=== PATIENT | male | born 1930 | race Caucasian/White ===

== ENCOUNTER 2016-06-21 12:20 | Emergency (ER) | payer MEDICARE, OTHER ==
[2016-06-21 12:36] VITALS: BP 130/67
[2016-06-21] MEDS ORDERED: ORPHENADRINE CITRATE 60 MG/2ML IM ONE (12:44)
[2016-06-21] MEDS ORDERED: HALOPERIDOL LACTATE 5 MG/ML VIAL IM ONE (12:44)
[2016-06-21] MEDS ORDERED: KETOROLAC TROMETHAMINE 60 MG/2 ML VIAL IM ONE (12:44)
[2016-06-21] MEDS ORDERED: oxyCODONE/ACETAMINOPHEN 5/325 TABLET PO ONE ×2 (14:45)
--- NOTE | 2016-06-21 15:51 | Diagnostic Imaging Report ---
[facility] [address] [facility] [address] [address] Report Submission Date: Jun 21, 2016 1:37:14 PM RESEARCH AFFILIATE Patient Study Name: AURELIO ZAMORA Date: Jun 21, 2016 1:12:32 PM RESEARCH AFFILIATE Modality Type: CT\SR Gender: M Description: CT L-SPINE W/O CONTRAS : 34 Institution: [facility] Physician: LELAND SALES CT of the lumbar spine CLINICAL HISTORY: Low back pain with sciatica on the left. TECHNIQUE: CT of the lumbar spine is performed in contiguous axial slices with sagittal and coronal reconstructions. FINDINGS: The alignment of the vertebrae is anatomic. Anterior and lateral osteophytes are present throughout the lumbar vertebrae. There is no evident fracture On the axial images at L2-3 there are degenerative facet changes with hypertrophic osteophytes. Epidural fat still surrounds the exiting roots. The diameter of the canal is within normal limits At L3-4 there are mild degenerative facet changes. There is 2-3 mm diffuse discogenic bulge. Epidural fat still surrounds the exiting roots. At L4-5 there are degenerative facet changes with osteophyte formation. There is mild hypertrophy of the ligaments. There is narrowing of both neural foramina at L4-5, although epidural fat still surrounds the exiting roots At L5-S1 there advanced degenerative facet changes with diffuse discogenic bulge of 2-3 mm. This results in narrowing of the lateral recesses and neural foramina bilaterally. IMPRESSION: Multilevel spondylosis that is worst at L5-S1. No fracture. Vascular calcification. Electronically signed on Jun 21, 2016 1:37:14 PM RESEARCH AFFILIATE by: Arias MADRID
--- NOTE | 2016-06-22 07:33 | ED Physician Documentation ---
Low Back Pain - HISTORIAN Historian: patient - HPI Stated Complaint: Left Hip Pain Chief Complaint: Low Back Pain/ Injury History: back pain Onset: hours (2) Duration: continues in ED, gone now Recent Injury: No Other Injuries: back Severity: moderate Quality: sharp Worsened By:: movement to LT flexion Relieved By: nothing Further Comments: no - ROS CONST: no problems CVS/RESP: none EYES/ENT: none MS/SKIN/LYMPH: none Neuro/Psych: none - PAST HX Past History: arthritis Surgeries/Procedures: none Immunizations: referred to PCP Allergies/Adverse Reactions: Allergies Allergy/AdvReac Type Severity Reaction Status Date / Time amiodarone Allergy Verified 06/21/16 12:37 Home Medications: Ambulatory Orders Medication Instructions Recorded Hydrochlorothiazide [Hydrodiuril] 12.5 mg PO DAILY 12/03/13 Lecithin 1,200 mg PO BID 12/03/13 Tiotropium [place] [Spiriva] 18 mcg INH DAILY 12/03/13 Diltiazem HCl [Cardizem CD] 1 tab PO D 03/29/14 Glucosamine/MSM/Chondroit Sulf 1 tab PO BID 03/29/14 [Ripvznbnton-Wnszqqebhll-JPS Tb] Metoprolol Tartrate [Lopressor] 50 mg PO BID 03/29/14 Warfarin Sodium [Coumadin] 1 tab PO [id number] 03/29/14 Warfarin Sodium [Coumadin] 1 tab PO [id number] 03/29/14 - SOCIAL HX Smoking History: non-smoker Alcohol Use: none Drug Use: none - FAMILY HX Family History: no significant history - VITAL SIGNS Vital Signs: Vital Signs Temp Pulse Resp BP Pulse Ox 98 F 78 18 130/67 98 06/21/16 12:20 06/21/16 15:15 06/21/16 15:15 06/21/16 15:15 06/21/16 15:15 - REVIEWED ASSESSMENTS Nursing Assessment Reviewed: Yes Vitals Reviewed: Yes Progress - Results/Orders Results/Orders: see orders - Progress Progress: responded to percocet Critical Care Note - Critical Care Note Total Time (mins): 0 ED Results Lab/Radiology - Lab Results Lab Results: none ordered - Radiology Radiology Impressions: ct l-spine shows ddd - Orders Orders: ED Orders Category Date Time Status CT L-SPINE W/O CONTRAST Stat Exams 06/21/16 Completed Haloperidol Lactate [Haldol] Med 06/21/16 12:44 Discontinued 5 mg IM NOW ONE Ketorolac Tromethamine [Toradol] Med 06/21/16 12:44 Discontinued 60 mg IM NOW ONE Orphenadrine Citrate [Norflex] Med 06/21/16 12:44 Discontinued 60 mg IM NOW ONE oxyCODONE HCL/ACETAMINOPHEN [Percocet 5-325 mg Tablet] Med 06/21/16 14:45 Discontinued 2 each PO .STK-MED ONE oxyCODONE HCL/ACETAMINOPHEN [Percocet 5-325 mg Tablet] Med 06/21/16 14:45 Discontinued 2 each PO NOW ONE Low Back Pain/Injury - Physical Exam General Appearance: moderate distress EENT: eye inspection normal, ENT inspection normal, pharynx normal, no signs of dehydration, CASPER, no nystagmus, TM's nml Neck: non-tender, painless ROM, trachea midline Resp/CVS: chest non-tender, breath sounds nml, heart sounds nml, no resp. distress, lungs clear, reg. rate & rhythm Abdomen: non-tender, no organomegaly, no pulsatile mass Back: other (l5 tenderness left) Straight Leg Raising: Positive Left, Positive Right Neuro/Psych: oriented x3, motor nml, sensation nml, bilat. doriflexion nml, reflexes nml, mood/affect nml Skin: warm/dry, normal color Extremities: non-tender, normal range of motion, no evidence of injury, no edema Discharge Clincal Impression: Sciatica Qualifiers: Laterality: left Qualified Code(s): M54.32 - Sciatica, left side Degenerative disc disease Qualifiers: Spinal region: lumbar Qualified Code(s): M51.36 - Other intervertebral disc degeneration, lumbar region Referrals: Mitchell Carter MD [Primary Care Provider] - 2 Days Home Medications: Ambulatory Orders Hydrochlorothiazide [Hydrodiuril] 12.5 mg PO DAILY 12/03/13 Lecithin 1,200 mg PO BID 12/03/13 Tiotropium [place] [Spiriva] 18 mcg INH DAILY 12/03/13 Diltiazem HCl [Cardizem CD] 1 tab PO D 03/29/14 Glucosamine/MSM/Chondroit Sulf [Gkedlqroxjx-Tyoyauyezig-YFL Tb] 1 tab PO BID 09/06 Metoprolol Tartrate [Lopressor] 50 mg PO BID 03/29/14 Warfarin Sodium [Coumadin] 1 tab PO [id number] 03/29/14 Warfarin Sodium [Coumadin] 1 tab PO [id number] 03/29/14 Comments: discharged with script for percocet, parafon and meloxicam Condition: Stable Disposition: 01 HOME, SELF-CARE Decision to Admit: NO Decision Time: 15:10
== END 2016-06-21 15:15 | disposition home or self-care (01) ==
LOC: ED 12:20
DX: M54.32 Sciatica, left side (principal)
CPT/HCPCS: 72131; A9270; J1630; J1885; J2360; 96372; 99283

== ENCOUNTER 2016-06-24 17:09 | Outpatient (CLI) | payer MEDICARE, OTHER | END 2016-06-24 17:15 | disposition home or self-care (01) | LOC: LAB 17:09 | PROVIDERS: ATTEND Family Medicine | DX: Z51.81 Encounter for therapeutic drug level monitoring (principal); Z79.01 Long term (current) use of anticoagulants; I48.2 Chronic atrial fibrillation | CPT/HCPCS: 36415; 85610 ==

== ENCOUNTER 2016-11-14 13:44 | Outpatient (CLI) | payer MEDICARE, OTHER ==
[2016-11-14 14:08] LABS: BASOPHILS % 1.9 (0.0-1.5); EOSINOPHILS % 5.5 % (0.0-6.8); MEAN CORPUSCULAR HEMOGLOBIN 33.5 pg (28.0-34.0); MEAN CORPUSCULAR VOLUME 98.7 fl (80.0-100.0); MONOCYTES % 10.5 % (0.0-11.0); NEUTROPHILS # 2.2 # k/uL (1.4-7.7)
[2016-11-14 14:34] LABS: eGFR (African) > 60; eGFR (Non-African) > 60
--- NOTE | 2016-11-14 16:25 | Diagnostic Imaging Report ---
[facility] [address] [facility].[address] [address] Report Submission Date: Nov 14, 2016 2:56:50 PM CDT Patient Study Name: AURELIO ZAMORA Date: Nov 14, 2016 2:08:23 PM CDT Modality Type: CR Gender: M Description: CHEST : 34 Institution: [facility] Physician: CHRISTOPHER LOCK Examination: PA and lateral chest. History: Evaluate lung love. Findings: PA lateral chest demonstrate a normal cardiac and mediastinal silhouette. No focal infiltrate. No effusion. Prominent central hilar vasculature. Left sided dual lead cardiac pacemaker. No blunting of the costophrenic margins. Osseous structures are appropriate for age. Impression: No acute process. Electronically signed on Nov 14, 2016 2:56:50 PM CDT by: Anthony MADRID
== END 2016-11-14 13:45 ==
LOC: LAB 13:44
PROVIDERS: ATTEND Nurse Practitioner
DX: I10 Essential (primary) hypertension (principal); I34.0 Nonrheumatic mitral (valve) insufficiency; I42.0 Dilated cardiomyopathy; I48.2 Chronic atrial fibrillation; R06.02 Shortness of breath; R60.0 Localized edema
CPT/HCPCS: 36415; 71020; 80053; 80061; 80162; 83880; 84443; 85025

== ENCOUNTER 2017-12-25 08:56 | Emergency (ER) | payer MEDICARE, OTHER ==
[2017-12-25 09:27] LABS: BASOPHILS % 0.2 (0.0-1.5); EOSINOPHILS % 1.8 % (0.0-6.8); MONOCYTES % 4.9 % (0.0-11.0); NEUTROPHILS # 6.2 # k/uL (1.4-7.7)
[2017-12-25 09:42] LABS: eGFR (African) > 60; eGFR (Non-African) > 60
--- NOTE | 2017-12-25 09:44 | ED Physician Documentation ---
General Adult - HISTORIAN Historian: patient - HPI Stated Complaint: ANKLE Chief Complaint: General Adult Onset: other (last night) Further Comments: yes (87 year old male patient presents with left ankle pain x 2 days, denies injury or fall, denies history of gout. Uses Dr Manjarrez as PCP, has not seen Dr Carter since 06/2016. States he is mildly SOB with exerction. Reports "I alwasy have swollen legs".) - ROS CONST: no problems EYES/ENT: none CVS/RESP: shortness of breath (mild "like normal"). denies: chest pain GI/: none MS/SKIN/LYMPH: joint pain (left ankle) NEURO/PSYCH: denies: headache, fainting, dizziness, tingling, numbness, difficulty walking, difficulty with speech, anxiety, depression, other - PAST HX Past History: A-Fib, hypertension Allergies/Adverse Reactions: Allergies Allergy/AdvReac Type Severity Reaction Status Date / Time amiodarone Allergy Verified 12/25/17 09:08 Home Medications: Ambulatory Orders Medication Instructions Recorded Hydrochlorothiazide [Hydrodiuril] 12.5 mg PO DAILY 12/03/13 Lecithin 1,200 mg PO BID 12/03/13 Tiotropium [place] [Spiriva] 18 mcg INH DAILY 12/03/13 Diltiazem HCl [Cardizem CD] 1 tab PO D 03/29/14 Glucosamine/MSM/Chondroit Sulf 1 tab PO BID 03/29/14 [Wjnidtfvcgs-Frrchqsyyvq-EJG Tb] Metoprolol Tartrate [Lopressor] 50 mg PO BID 03/29/14 Warfarin Sodium [Coumadin] 1 tab PO [id number] 03/29/14 Warfarin Sodium [Coumadin] 1 tab PO [id number] 03/29/14 - SOCIAL HX Smoking History: non-smoker - FAMILY HX Family History: No - VITAL SIGNS Vital Signs: Vital Signs Temp Pulse Resp BP Pulse Ox 98.3 F 75 22 139/72 99 12/25/17 09:04 12/25/17 09:04 12/25/17 09:04 12/25/17 09:04 12/25/17 09:04 - REVIEWED ASSESSMENTS Nursing Assessment Reviewed: Yes Vitals Reviewed: Yes Progress - Progress Progress: Patient states he is taking 80mg of lasix in the morning and 40mg QHS. Patient states he did not take his meds this morning. Reviewed lab and xray results with patient. Patient reports he has an appointment with Dr Manjarrez at 1500 today. Copies of lab and xray report sent to Dr Manjarrez's office. Patient appointment for outpatient US of left lower extremity. ED Results Lab/Radiology - Lab Results Lab Results: Lab Results 12/25/17 12/25/17 09:20 09:20 WBC 7.30 K/ul K/ul (4.00-12.00) RBC 3.77 M/ul L M/ul (3.90-5.20) Hgb 12.8 g/dL g/dL (12.0-18.0) Hct 38.1 % % (37.0-53.0) MCV 101.0 fl H fl (80.0-100.0) MCH 34.0 pg pg (28.0-34.0) MCHC 33.6 g/dL g/dL (30.0-36.0) RDW 15.3 % H % (11.3-14.3) Plt Count 184 K/mm3 K/mm3 (130-400) Neut % (Auto) 84.1 % H % (39.0-79.0) Lymph % (Auto) 7.9 % L % (16.0-50.0) [place] % (Auto) 4.9 % % (0.0-11.0) Eos % (Auto) 1.8 % % (0.0-6.8) Baso % (Auto) 0.2 (0.0-1.5) Neut # (Auto) 6.2 # k/uL # k/uL (1.4-7.7) Lymph # (Auto) 0.6 # k/uL # k/uL (0.6-4.0) [place] # (Auto) 0.4 # k/uL # k/uL (0.0-0.9) Eos # (Auto) 0.1 # k/uL # k/uL (0.0-0.6) Baso # (Auto) 0.0 # k/uL # k/uL (0.0-0.5) Reactive Lymphs % 1.1 % % (0.0-5.0) Reactive Lymphs # 0.1 # k/uL # k/uL (0.0-0.8) Sodium 139 mmol/L mmol/L (136-145) Potassium 3.6 mmol/L mmol/L (3.5-5.1) Chloride 99 mmol/L mmol/L (98-107) Carbon Dioxide 34 mmol/L H mmol/L (22-30) BUN 13 mg/dL mg/dL (9-20) Creatinine 0.90 mg/dL mg/dL (0.66-1.25) Estimated Creat Clear 84 Est GFR ( Amer) > 60 (60 - ) Est GFR (Non-Af Amer) > 60 (60 - ) Glucose 111 mg/dL H mg/dL (74-106) Uric Acid 6.4 mg/dL mg/dL (3.5-8.5) Calcium 9.4 mg/dL mg/dL (8.4-10.2) Total Bilirubin 0.8 mg/dL mg/dL (0.2-1.3) AST 29 U/L U/L (15-46) ALT 31 U/L U/L (13-69) Alkaline Phosphatase 86 U/L U/L (38-126) Total Protein 6.2 g/dL L g/dL (6.3-8.2) Albumin 3.5 g/dL g/dL (3.5-5.0) - Radiology Radiology Impressions: Examination: Plain film left ankle History: LEFT ANKLE, PAIN AND SWELLING IN LEFT ANKLE SINCE EARLY THIS MORNING, NO KNOWN INJURY (Hx) Findings: 3 views of the ankle demonstrates normal cortical margins. No fracture or dislocation. Articular degenerative spurring. Talar dome is intact. Generalized soft tissue fullness. Soft tissue calcifications. No joint effusion. Impression: No acute osseous process. Generalized soft tissue fullness. Electronically signed on Dec 25, 2017 9:36:45 AM CDT by: Anthony Rivera - Orders Orders: ED Orders Category Date Time Status LEFT ANKLE [ANKLE 3 VIEWS OR MORE] [RAD] Stat Exams 12/25/17 Ordered BNP [NT-proBNP] Stat Lab 12/25/17 09:20 Completed CBC/PLATELET/DIFF Stat Lab 12/25/17 09:20 Completed CMP Stat Lab 12/25/17 09:20 Completed URIC ACID Stat Lab 12/25/17 09:20 Completed General Adult Physical Exam - PHYSICAL EXAM GENERAL APPEARANCE: mild distress EENT: eye inspection normal, ENT inspection normal, no signs of dehydration, CASPER, no nystagmus, TM's nml RESPIRATORY: no resp distress, chest non-tender, breath sounds normal CVS: reg rate & rhythm, heart sounds normal, equal pulses, no murmur, no gallop , PMI nml, no JVD, no friction rub, 24 ABDOMEN: soft, no organomegaly, normal bowel sounds, no abdominal bruit, no distension BACK: normal inspection, no CVA tenderness SKIN: normal color, warm/dry, NR, INT, PAL, DR EXTREMITIES: normal range of motion, no evidence of injury, edema (2+), tenderness (left ankle) NEURO: oriented X3, CN's nml as tested, motor nml, sensation nml, mood/affect nml Discharge Clincal Impression: Edema of both ankles Left ankle pain Qualifiers: Chronicity: acute Qualified Code(s): M25.572 - Pain in left ankle and joints of left foot Referrals: Mitchell Carter MD [Primary Care Provider] - 2 Days Additional Instructions: Rest Elevation Wear your TELMA hose during the day and at night if able to sleep with hose on Keep your appointment with Dr Manjarrez today - take all paper work with you. Saturday, December 30, 2017 - Ultrasound of left leg at 8:00 am; follow up with Dr Carter for results Condition: Stable Disposition: 01 HOME, SELF-CARE Decision to Admit: NO Decision Time: 10:36
[2017-12-25 10:43] VITALS: BP 119/51
--- NOTE | 2017-12-25 18:26 | Diagnostic Imaging Report ---
MARIO FERNANDEZ (COMMISSARY WORKER) - ER [facility] [address] [address] Report Submission Date: Dec 25, 2017 9:36:45 AM CDT Patient Study Name: AURELIO ZAMORA Date: Dec 25, 2017 9:14:35 AM CDT Modality Type: DX Gender: M Description: LOWER EXTREMITY : 34 Institution: [facility] Physician: MARIO FERNANDEZ (COMMISSARY WORKER) - ER Examination: Plain film left ankle History: LEFT ANKLE, PAIN AND SWELLING IN LEFT ANKLE SINCE EARLY THIS MORNING, NO KNOWN INJURY (Hx) Findings: 3 views of the ankle demonstrates normal cortical margins. No fracture or dislocation. Articular degenerative spurring. Talar dome is intact. Generalized soft tissue fullness. Soft tissue calcifications. No joint effusion. Impression: No acute osseous process. Generalized soft tissue fullness. Electronically signed on Dec 25, 2017 9:36:45 AM CDT by: Anthony MADRID
== END 2017-12-25 10:41 | disposition home or self-care (01) ==
LOC: ED 08:56
DX: R60.0 Localized edema (principal); M25.572 Pain in left ankle and joints of left foot
CPT/HCPCS: 73610; 80053; 83880; 84550; 85025; 85610; 99284; S1016

== ENCOUNTER 2017-12-30 09:57 | Outpatient (CLI) | payer MEDICARE, OTHER ==
--- NOTE | 2017-12-30 11:39 | Diagnostic Imaging Report ---
[facility] [address] [address] Report Submission Date: Dec 30, 2017 11:11:52 AM CDT Patient Study Name: AURELIO ZAMORA Date: Dec 30, 2017 10:13:19 AM CDT Modality Type: US Gender: M Description: : 34 Institution: [facility] Physician: PHAN WAGGONER The left lower show any venous Doppler Clinical history: Left leg swelling Findings: The left common femoral vein, femoral vein and popliteal vein demonstrates normal compression and color Doppler signal. The calf veins are poorly visualized but appear unremarkable. Impression: Negative left lower extremity dvt Electronically signed on Dec 30, 2017 11:11:52 AM CDT by: Beni MADRID
== END 2017-12-30 10:00 ==
LOC: RAD 09:57
PROVIDERS: ATTEND Emergency Medicine
DX: M79.605 Pain in left leg (principal); R60.0 Localized edema
CPT/HCPCS: 93971

== ENCOUNTER 2018-01-06 10:23 | Outpatient (CLI) | payer MEDICARE, OTHER ==
[2018-01-06 11:35] LABS: eGFR (African) > 60; eGFR (Non-African) > 60
== END 2018-01-06 13:54 ==
LOC: LAB 10:23
PROVIDERS: ATTEND Family Medicine
DX: I34.0 Nonrheumatic mitral (valve) insufficiency (principal); I42.0 Dilated cardiomyopathy; I48.2 Chronic atrial fibrillation; R06.02 Shortness of breath; R60.0 Localized edema; I10 Essential (primary) hypertension
CPT/HCPCS: 36415; 80048; 83880

== ENCOUNTER 2018-03-18 15:31 | Outpatient (CLI) | payer MEDICARE, OTHER ==
[2018-03-18 16:06] LABS: eGFR (Non-African) > 60
== END 2018-03-18 15:36 | disposition home or self-care (01) ==
LOC: LAB 15:31
PROVIDERS: ATTEND Internal Medicine Cardiovascular Disease
DX: I10 Essential (primary) hypertension (principal); R60.0 Localized edema
CPT/HCPCS: 36415; 80048

== ENCOUNTER 2018-05-04 09:22 | Inpatient (IN) | payer MEDICARE, OTHER ==
[2018-05-04] MEDS ORDERED: 0.9 % SODIUM CHLORIDE 1,000 ML IV ONE (09:34)
[2018-05-04 09:46] LABS: BASOPHILS % 0.2 (0.0-1.5); EOSINOPHILS % 1.5 % (0.0-6.8); MEAN CORPUSCULAR HEMOGLOBIN 33.8 pg (28.0-34.0); MONOCYTES % 9.6 % (0.0-11.0); NEUTROPHILS # 4.7 # k/uL (1.4-7.7)
[2018-05-04 10:05] LABS: eGFR (Non-African) > 60
--- NOTE | 2018-05-04 11:17 | Diagnostic Imaging Report ---
MARIO FERNANDEZ (USER EXPERIENCE ANALYST) - ER [facility] [address] [facility].[address] [address] Report Submission Date: May 04, 2018 11:09:31 AM DESIZING MACHINE BACK TENDER Patient Study Name: AURELIO ZAMORA Date: May 04, 2018 10:03:13 AM DESIZING MACHINE BACK TENDER Modality Type: DX Gender: M Description: LOWER EXTREMITY : 34 Institution: [facility] Physician: MARIO FERNANDEZ (USER EXPERIENCE ANALYST) - ER Examination: Plain film left hip/femur History: LEFT LEG PAIN POST FALL TODAY. PREVIOUS LEFT TOTAL HIP REPLACMENT IN 2001. (Hx) Comparison exams: None provided Findings: 4 views of the left hip/femur demonstrates hip prosthesis in place. Dystrophic calcifications. Articular degenerative changes. No gross cortical irregularity. Vascular calcifications. Impression: Hip prosthesis, degenerative changes. No acute appearing cortical abnormality. Electronically signed on May 04, 2018 11:09:31 AM DESIZING MACHINE BACK TENDER by: Anthony MADRID
--- NOTE | 2018-05-04 11:17 | Diagnostic Imaging Report ---
MARIO FERNANDEZ (CORE COMPOSER MACHINE TENDER) - ER [facility] [address] [facility].[address] [address] Report Submission Date: May 04, 2018 11:13:24 AM DUST MIXER Patient Study Name: AURELIO ZAMORA Date: May 04, 2018 9:54:06 AM DUST MIXER Modality Type: DX Gender: M Description: PELVIS,LOWER EXTREMITY : 34 Institution: [facility] Physician: MARIO FERNANDEZ (CORE COMPOSER MACHINE TENDER) - ER Examination: Plain film pelvis History: LEFT LEG PAIN POST FALL TODAY. PREVIOUS LEFT TOTAL HIP REPLACMENT IN 2001. (Hx) Comparison exams: None provided Findings: 5 views of the pelvis demonstrates bilateral hip prosthesis in place. Articular degenerative changes. No evidence for fracture or loosening. Prostate region therapy. Lumbar spine degenerative changes. Impression: Bilateral hip prosthesis. Degenerative changes. No evidence for fracture/loosening. Electronically signed on May 04, 2018 11:13:24 AM DUST MIXER by: Anthony MADRID
[2018-05-04] MEDS ORDERED: POTASSIUM CHLORIDE 20 MEQ TABLET.ER PO ONE (11:20)
--- NOTE | 2018-05-04 12:04 | ED Physician Documentation ---
General Adult - HISTORIAN Historian: patient, paramedics - HPI Stated Complaint: fall Chief Complaint: General Adult Further Comments: yes (87 year old male patient brought in by EMS after a fall at home. Patient reports he fell at home last night around 2300 and could not get up all night. His friend found him at home this morning.) - ROS CONST: no problems EYES/ENT: none CVS/RESP: none GI/: none MS/SKIN/LYMPH: none NEURO/PSYCH: denies: headache - PAST HX Past History: COPD, A-Fib, hypertension Allergies/Adverse Reactions: Allergies Allergy/AdvReac Type Severity Reaction Status Date / Time amiodarone Allergy Verified 05/04/18 09:39 Home Medications: Ambulatory Orders Medication Instructions Recorded Lecithin 1,200 mg PO BID 12/03/13 Glucosamine/MSM/Chondroit Sulf 1 tab PO BID 03/29/14 [Cybndymdwsj-Pghktnwndrc-ZPG Tb] Metoprolol Tartrate [Lopressor] 50 mg PO BID 03/29/14 Warfarin Sodium [Coumadin] 5 mg PO [id number] 03/29/14 Warfarin Sodium [Coumadin] 7.5 mg PO [id number] 03/29/14 Digoxin [Lanoxin] 125 mcg PO D 05/04/18 Diltiazem HCl [Tiazac] 180 mg PO BID 05/04/18 - SOCIAL HX Smoking History: non-smoker - FAMILY HX Family History: No - VITAL SIGNS Vital Signs: Vital Signs Temp Pulse Resp BP Pulse Ox 97.0 F L 95 H 12 130/72 97 05/04/18 09:22 05/04/18 09:34 05/04/18 09:22 05/04/18 09:22 05/04/18 09:34 - REVIEWED ASSESSMENTS Nursing Assessment Reviewed: Yes Vitals Reviewed: Yes Progress - Progress Progress: [address] Carter - accepted for admission for observation status for pain control and PT eval. Will CT left hip and femur prior to admission. ED Results Lab/Radiology - Lab Results Lab Results: Lab Results 05/04/18 05/04/18 05/04/18 09:38 09:34 09:34 WBC 6.20 K/ul K/ul (4.00-12.00) RBC 3.53 M/ul L M/ul (3.90-5.20) Hgb 11.9 g/dL L g/dL (12.0-18.0) Hct 35.0 % L % (37.0-53.0) MCV 99.0 fl fl (80.0-100.0) MCH 33.8 pg pg (28.0-34.0) MCHC 34.1 g/dL g/dL (30.0-36.0) RDW 14.3 % % (11.3-14.3) Plt Count 175 K/mm3 K/mm3 (130-400) Neut % (Auto) 75.6 % % (39.0-79.0) Lymph % (Auto) 13.1 % L % (16.0-50.0) [place] % (Auto) 9.6 % % (0.0-11.0) Eos % (Auto) 1.5 % % (0.0-6.8) Baso % (Auto) 0.2 (0.0-1.5) Neut # (Auto) 4.7 # k/uL # k/uL (1.4-7.7) Lymph # (Auto) 0.8 # k/uL # k/uL (0.6-4.0) [place] # (Auto) 0.6 # k/uL # k/uL (0.0-0.9) Eos # (Auto) 0.1 # k/uL # k/uL (0.0-0.6) Baso # (Auto) 0.0 # k/uL # k/uL (0.0-0.5) PT 35.7 Seconds H Seconds (9.4-11.6) INR 3.36 H (0.9-1.2) Sodium 138 mmol/L mmol/L (136-145) Potassium 3.4 mmol/L L mmol/L (3.5-5.1) Chloride 100 mmol/L mmol/L (98-107) Carbon Dioxide 32 mmol/L H mmol/L (22-30) BUN 13 mg/dL mg/dL (9-20) Creatinine 0.90 mg/dL mg/dL (0.66-1.25) Est GFR ( Amer) > 60 (60 - ) Est GFR (Non-Af Amer) > 60 (60 - ) Glucose 125 mg/dL H mg/dL (74-106) Calcium 8.9 mg/dL mg/dL (8.4-10.2) Total Bilirubin 1.0 mg/dL mg/dL (0.2-1.3) AST 40 U/L U/L (15-46) ALT 45 U/L U/L (13-69) Alkaline Phosphatase 84 U/L U/L (38-126) Creatine Kinase 169 U/L U/L (55-170) Total Protein 5.8 g/dL L g/dL (6.3-8.2) Albumin 3.2 g/dL L g/dL (3.5-5.0) - Radiology Radiology Impressions: Examination: Plain film left hip/femur History: LEFT LEG PAIN POST FALL TODAY. PREVIOUS LEFT TOTAL HIP REPLACMENT IN 2001. (Hx) Comparison exams: None provided Findings: 4 views of the left hip/femur demonstrates hip prosthesis in place. Dystrophic calcifications. Articular degenerative changes. No gross cortical irregularity. Vascular calcifications. Impression: Hip prosthesis, degenerative changes. No acute appearing cortical abnormality. Electronically signed on May 04, 2018 11:09:31 AM FILM RECORDIST by: Anthony Rivera Examination: Plain film pelvis History: LEFT LEG PAIN POST FALL TODAY. PREVIOUS LEFT TOTAL HIP REPLACMENT IN 2001. (Hx) Comparison exams: None provided Findings: 5 views of the pelvis demonstrates bilateral hip prosthesis in place. Articular degenerative changes. No evidence for fracture or loosening. Prostate region therapy. Lumbar spine degenerative changes. Impression: Bilateral hip prosthesis. Degenerative changes. No evidence for fracture/loosening. Electronically signed on May 04, 2018 11:13:24 AM FILM RECORDIST by: Anthony Rivera Examination: CT left extremity. History: FALL WITH LT FEMUR PAIN TODAY HX OF LT HIP REPLACEMENT IN 2001 (Hx) Comparison exams: Plain film dated 04 May 2018 Technique: Axial imaging was sagittal and coronal reconstruction. Findings: Streak artifact from hip replacement hardware. No evidence for disruption of the cortical margins. Few scattered dystrophic calcifications. No gross soft tissue irregularity. Vascular calcifications. Impression: Hip prosthesis. Articular degenerative changes. No evidence for hip/femur fracture or dislocation. Electronically signed on May 04, 2018 1:34:59 PM FILM RECORDIST by: Anthony Rivera - Orders Orders: ED Orders Category Date Time Status Continuous EKG monitoring Q30M Care 05/04/18 09:34 Active Continuous Pulse Oximetry Q30M Care 05/04/18 09:[address] IV Lock 1T Care 05/04/18 09:34 Active LT FEMUR 2VIEWS [RAD] Routine Exams 05/04/18 Completed LT HIP 2VIEW COMPLETE [RAD] Stat Exams 05/04/18 Completed CBC/PLATELET/DIFF Stat Lab 05/04/18 09:34 Completed CKMB Stat Lab 05/04/18 09:34 Received CMP Stat Lab 05/04/18 09:34 Completed CREATINE KINASE Stat Lab 05/04/18 09:34 Completed PT-INR Stat Lab 05/04/18 09:38 Completed TROPONIN I (cTnI) Stat Lab 05/04/18 09:34 Received UA W/MICRO IF INDICATED Stat Lab 05/04/18 09:34 Ordered 0.9 % Sodium Chloride [Normal Saline] 1,000 ml Med 05/04/18 09:34 Discontinued IV NOW Potassium Chloride [Klor-Con M20] Med 05/04/18 11:20 Discontinued 20 meq PO NOW ONE EKG WITH COMPARISON Stat Ther 05/04/18 09:34 Completed General Adult Physical Exam - PHYSICAL EXAM GENERAL APPEARANCE: moderate distress EENT: eye inspection normal, CASPER, dry mucous membranes RESPIRATORY: no resp distress, chest non-tender, breath sounds normal CVS: reg rate & rhythm, heart sounds normal, equal pulses, no murmur, no gallop, PMI nml, no JVD, no friction rub ABDOMEN: soft, no organomegaly, normal bowel sounds, no abdominal bruit, no distension BACK: normal inspection, no CVA tenderness SKIN: warm/dry, normal color, other (no pressure wounds noted on back, heels, elbows or pressure points. Skin tear to left elbow. ) EXTREMITIES: non-tender, normal range of motion, no evidence of injury, no edema, J, CONTINUOUS PROCESS MACHINE OPERATOR NEURO: oriented X3, motor nml, sensation nml, mood/affect nml, weakness/sensory loss (generalized weakness; gait not accessed at this time. Will send to radiology first) Discharge Clincal Impression: Hip pain, left, Confusion Fall Qualifiers: Encounter type: initial encounter Qualified Code(s): W19.XXXA - Unspecified fall, initial encounter Condition: Stable Disposition: ADMITTED INPATIENT Decision to Admit: [id number] Decision Time: 12:45
[2018-05-04] MEDS ORDERED: fentaNYL CITRATE/PF 100 MCG/2 ML INJ. IVP ONE (12:12)
--- NOTE | 2018-05-04 15:14 | History and Physical Report ---
History of Present Illnes - History of Present Illness Reason for Visit: syncopal episode, LLE pain History of Present Illness: 87yo whit male who states about one month age he started to have some problems with urination, initiating and not able to completely empty his bladder. Has been treated for prostate cancer, treated with radiation implants. Is having similar symptoms. Patient states that for the last 10 years he has been having some blood in stool. Had a colonoscopy at that time and was normal. Is starting to have some stool incontinence. Patient believes that he might be having some increase blood. Last night he fell. Has been having some episodes of low BP. At 2200 had a oliver ding of 70/30. NO sure of what precipitates the epiodes. When he got up felt light headed and fell. Was out for just a second. At that time when he straighten left leg out he had some immediate pain. Spent the night on the floor. This AM called someone to help him. 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 Alcohol: Occassional Drugs: None Lives: With Family Domestic Violence: Negative - Health Maintenance Health Maintenance: Cholesterol, Influenza Vaccine, Pneumococcal Vaccine, Colonoscopy (10 years ago) Influenza Vaccine: Current for this Influenza Season Pneumonia Vaccine: Yes Resuscitation Status: Resusciation Status Resuscitation Status Full Code - Unable to Obtain History Unable to Obtain: No Review of Systems - Review of Systems Constitutional: negative: Fever, Chills, Sweats, Weakness Eyes: negative: pain, vision change ENT: negative: Ear Pain, Ear Discharge, Nose Pain, Nose Discharge, Nose Congestion, Throat Pain, Throat Swelling Respiratory: Shortness of Breath, SOB with Excertion. negative: Cough, He moptysis, Sputum, Wheezing Cardiovascular: Light Headedness. negative: Chest Pain, Palpitations, Orthopnea ("will" you hundred million during the chart right now is beenyes you), Edema Gastrointestinal: Constipation, Hematochezia. negative: Nausea, Vomiting, Abdominal Pain, Diarrhea, Melena Genitourinary: Frequency, Incontinence, Hematuria. negative: Dysuria Musculoskeletal: Back Pain, Leg Pain Skin: negative: Rash Neurological: negative: Weakness, Numbness, Incoordination, Change in Speech, Confusion, Seizures - Medications/Allergies Allergies/Adverse Reactions: Allergies Allergy/AdvReac Type Severity Reaction Status Date / Time amiodarone Allergy Verified 05/04/18 09:39 Home Medications: Home Medications Digoxin [Lanoxin] 125 mcg PO D 05/04/18 Diltiazem HCl [Tiazac] 180 mg PO BID 05/04/18 Exam - Exam Vital Signs: Vital Signs (72 hours) 05/04/18 05/04/18 05/04/18 09:22 09:34 11:04 Temperature 97.0 F L Pulse Rate 95 H 72 Pulse Rate [ 96 H Pulse ox] Respiratory 12 Rate Blood Pressure 130/72 [Left Arm] Blood Pressure [Right Arm] O2 Sat by Pulse 97 97 100 Oximetry 05/04/18 05/04/18 05/04/18 11:30 12:00 13:38 Temperature Pulse Rate 71 71 76 Pulse Rate [ Pulse ox] Respiratory Rate Blood Pressure [Left Arm] Blood Pressure [Right Arm] O2 Sat by Pulse 96 96 96 Oximetry 05/04/18 05/04/18 13:46 13:55 Temperature Pulse Rate Pulse Rate [ 80 Pulse ox] Respiratory 14 Rate Blood Pressure [Left Arm] Blood Pressure 128/64 [Right Arm] O2 Sat by Pulse 97 98 Oximetry General: Alert, Oriented to Person, Oriented to Place, Oriented to Time, Cooperative, Severe distress (with movement of LLE) HEENT: Atraumatic, PERRLA, EOMI, Mouth Mucous membr. moist/[place], Nose Mucous membr. moist/[place] Neck: Normal Range of Motion Lungs: Clear to auscultation, Normal air movement, Speaks full Sentences. No: Wheezes, Rales, Rhonchi Cardiovascular: Normal S1, Normal S2, No murmurs, Irregularly Irregular Abdomen: Normal bowel sounds, Soft, No tenderness, No hepatospenomegaly, No masses Integumentary: Normal, [place], Warm, Dry Extremities: No clubbing, No cyanosis, No edema, Normal pulses, Other ( tenderness to palpation over the mid left thigh, no ecchymosis or swelling noted at this time) Neurological: Normal gait, Normal speech, Strength Equal Bilat, Normal tone, Sen sation intact, Cranial nerves 3-12 NL, Reflexes 2+ Psych/Mental Status: Mental status NL, Mood NL, Appropriate Affect, Intact Judgment - Laboratory Results Laboratory Results: Laboratory Results 05/04/18 05/04/18 05/04/18 09:34 09:34 09:38 WBC 6.20 RBC 3.53 L Hgb 11.9 L Hct 35.0 L MCV 99.0 MCH 33.8 MCHC 34.1 RDW 14.3 Plt Count 175 Neut % (Auto) 75.6 Lymph % (Auto) 13.1 L [place] % (Auto) 9.6 Eos % (Auto) 1.5 Baso % (Auto) 0.2 Neut # (Auto) 4.7 Lymph # (Auto) 0.8 [place] # (Auto) 0.6 Eos # (Auto) 0.1 Baso # (Auto) 0.0 PT 35.7 H INR 3.36 H Sodium 138 Potassium 3.4 L Chloride 100 Carbon Dioxide 32 H BUN 13 Creatinine 0.90 Est GFR ( Amer) > 60 Est GFR (Non-Af Amer) > 60 Glucose 125 H Calcium 8.9 Total Bilirubin 1.0 AST 40 ALT 45 Alkaline Phosphatase 84 Creatine Kinase 169 Total Protein 5.8 L Albumin 3.2 L Assessment/Plan - Assessment/Plan (1) Syncope and collapse Status: Acute Current Visit: Yes Assessment: I am concerned that the patient is following and is currently on Coumadin therapy for chronic atrial fibrillation. I will contact his nail sticker to see what he thinks about risk and benefits of continuing or discontinuing the medication. I suspect that he will need to be switched over to Eliquis or Xarelto. Patient will be placed on loop cutter for possible bradycardia or tachycardia that may explain his near syncopal episodes. (2) Hypotension Status: Acute Current Visit: Yes Assessment: Patient blood pressure has been stable since admission to the hospital. Will monitor for hypotension. Patient diltiazem will be held at this time. Will continue with the metoprolol and the Lasix. (3) Leg pain Status: Acute Current Visit: Yes Assessment: Etiology is unclear. Patient did not appear to have any fractures according to the CT scan and x-ray. Patient does not appear to be developing any hematoma in the area. I suspect that the patient may have strained or torn muscle in his thigh area.I will get physical therapy consult. Patient will have a cool compress placed on his leg. (4) Hematochezia Status: Acute Current Visit: Yes Assessment: Will check to stools for blood. Will recheck a CBC in the morning. Patient may need to have a CT scan done to look for possible growth or partial obstruction. (5) Urinary frequency Status: Acute Current Visit: Yes Assessment: I will get a post void residual ultrasound done. Will get a UA and PSA done. (6) Prostate cancer Status: Acute Current Visit: Yes (7) Atrial fibrillation Status: Acute Current Visit: Yes Assessment: Patient is on Coumadin therapy at this time. Patient does have an elevated INR. Will hold his Coumadin tonight and recheck INR in the morning. (8) COPD (chronic obstructive pulmonary disease) Status: Acute Current Visit: Yes Assessment: Will continue with home medications. VTE Assessment - RISK FACTOR SCORE VTE RISK FACTOR SCORES: AGE OVER 60 YEARS, ANTICIPATED BED CONFINEMENT OR IMMOBILIZATION > 24 HOURS - RISK VTE MODERATE RISK: SCORE OF 2 (RISK PROXIMAL DVT 2-4%) PROPHYAXIS NEEDED (on anticoagulation therapy)
[2018-05-04 16:16] LABS: APPEARANCE,URINE CLEAR (CLEAR); COLOR,URINE AMBER (YELLOW); OCCULT BLOOD,URINE NEGATIVE (NEGATIVE); PH URINE 5.5 (5.0 - 8.0); UROBILINOGEN URINE 0.2 Eu (0.2-1.0)
--- NOTE | 2018-05-04 16:44 | Diagnostic Imaging Report ---
MARIO FERNANDEZ (BOAT OPERATOR) - ER [facility] [address] [facility] [address] [place], [place]. [address] Report Submission Date: May 04, 2018 2:16:53 PM TRAVERSE ROD ASSEMBLER Patient Study Name: AURELIO ZAMORA Date: May 04, 2018 1:53:13 PM TRAVERSE ROD ASSEMBLER Modality Type: CT\SR Gender: M Description: CT BRAIN W/O CONTRAST : 34 Institution: [facility] Physician: MARIO FERNANDEZ (JO ANN) - ER Examination: CT head without contrast History: Pt fell this morning (Hx) / Comparison exam: None available Technique: Noncontrast head CT protocol. Findings: Ventricles and sulci are prominent,. Cerebrocerebellar parenchyma demonstrates periventricular low attenuation consistent with small vessel disease. No evidence for parenchymal hemorrhage. No evidence for mass or mass effect. No midline shift. No extra axial fluid collections. Partial visualization of the paranasal sinuses, mastoid air cells, orbits, skull and scalp without gross irregularity. Falx calcifications. Streak artifact from dental hardware. Impression: Advanced age related changes. No acute parenchymal process. No hemorrhage. Electronically signed on May 04, 2018 2:16:53 PM TRAVERSE ROD ASSEMBLER by: Anthony MADRID
--- NOTE | 2018-05-04 16:44 | Diagnostic Imaging Report ---
MARIO FERNANDEZ (SPEECH CORRECTION ASSISTANT) - ER [facility] [address] [facility] [address] [place], [place]. [address] Report Submission Date: May 04, 2018 1:34:59 PM OYSTER GROWER Patient Study Name: AURELIO ZAMORA Date: May 04, 2018 12:19:41 PM OYSTER GROWER Modality Type: CT\SR Gender: M Description: CT LEG W/O CONTRAST : 34 Institution: [facility] Physician: MARIO FERNANDEZ (SPEECH CORRECTION ASSISTANT) - ER Examination: CT left extremity. History: FALL WITH LT FEMUR PAIN TODAY HX OF LT HIP REPLACEMENT IN 2001 (Hx) Comparison exams: Plain film dated 04 May 2018 Technique: Axial imaging was sagittal and coronal reconstruction. Findings: Streak artifact from hip replacement hardware. No evidence for disruption of the cortical margins. Few scattered dystrophic calcifications. No gross soft tissue irregularity. Vascular calcifications. Impression: Hip prosthesis. Articular degenerative changes. No evidence for hip/femur fracture or dislocation. Electronically signed on May 04, 2018 1:34:59 PM OYSTER GROWER by: Anthony MADRID
[2018-05-04] MEDS: FUROSEMIDE 40 MG TABLET PO SCH ×2 (16:56)
[2018-05-04 17:09] VITALS: BMI 28.0
[2018-05-04] MEDS: TERAZOSIN HCL 1 MG CAPSULE PO SCH (21:15)
[2018-05-04] MEDS: METOPROLOL TARTRATE 50 MG TABLET PO SCH (21:15)
[2018-05-05 07:36] LABS: eGFR (Non-African) > 60
[2018-05-05 07:37] LABS: MEAN CORPUSCULAR HEMOGLOBIN 34.3 pg (28.0-34.0)
[2018-05-05 07:38] LABS: BASOPHILS % 0.1 (0.0-1.5); EOSINOPHILS % 3.2 % (0.0-6.8); MONOCYTES % 12.5 % (0.0-11.0); NEUTROPHILS # 2.9 # k/uL (1.4-7.7)
[2018-05-05] MEDS: DIGOXIN 125 MCG TABLET PO SCH (08:35)
[2018-05-05] MEDS: FUROSEMIDE 40 MG TABLET PO SCH ×2 (08:36→13:33)
[2018-05-05] MEDS: METOPROLOL TARTRATE 50 MG TABLET PO SCH ×2 (08:37→21:24)
[2018-05-05] MEDS: HYDROmorphone HCL/PF 1 MG/ML VIAL IVP PRN (08:40)
[2018-05-05] MEDS ORDERED: fentaNYL CITRATE/PF 100 MCG/2 ML INJ. IVP PRN (09:25)
--- NOTE | 2018-05-05 09:29 | Inpatient Progress Note ---
Subjective - Required Recertification Statement I anticipate X number of days because-include discharge plan: 2 days - Review of Systems Events since last encounter: Patient continues to have a a lot of pain with movement in the left by area. Patient stated as long as he is still he doesn't have to much difficulties with it. Patient continues to have some and conduct of bowel problems. Is not sure whether there is been blood in the development of the time or not. Patient state d that the dilaudid does not seem to be covering his pain well when he moves his legs. Patient has been able to urinate without much difficulties. Patient had not had any further syncopal episode. Patient heart monitor shows atrial fibrillation. Cardiovascular: Palpitations. Denies: Chest Pain Gastrointestinal: Denies: Nausea, Vomiting, Abdominal Pain Objective - Exam Vitals and I&O: Vital Signs Temp 98.7 F 05/05/18 08:12 Pulse 74 05/05/18 08:12 Resp 18 05/05/18 08:12 BP 141/60 05/05/18 08:12 Pulse Ox 96 05/05/18 08:12 Intake & Output 05/04/18 05/04/18 05/05/18 11:59 23:59 11:59 Intake Total 710 Output Total 500 400 Balance -500 310 Weight 104.326 kg 104.326 kg Intake: Oral 710 Output: Urine 500 400 Other: Voiding Method Urinal Urinal General: Alert, Oriented to Person, Oriented to Place, Oriented to Time, Cooperative HEENT: Atraumatic, PERRLA, EOMI, Mouth Mucous membr. moist/[place], Nose Mucous membr. moist/[place] Neck: Supple, No JVD, No thyromegaly Lungs: Clear to auscultation, Normal air movement, Speaks full Sentences Cardiovascular: Normal S1, Normal S2, No murmurs, Irregularly Irregular Abdomen: Normal bowel sounds, Soft, No hepatospenomegaly, No masses, Other (mild diffuse tenderness) Extremities: No clubbing, No cyanosis, No edema, Normal pulses, No tenderness/swelling Skin: Normal, [place], Warm, Dry Neurological: Normal gait, Normal speech, Strength Equal Bilat, Normal tone, Sensation intact, Cranial nerves 3-12 NL, Reflexes 2+ Psych/Mental Status: Mental status NL, Mood NL, Appropriate Affect, Intact Judgment - Results Results: Laboratory Results WBC 4.40 K/ul (4.00-12.00) 05/05/18 06:34 RBC 3.14 M/ul (3.90-5.20) L 05/05/18 06:34 Hgb 10.8 g/dL (12.0-18.0) L 05/05/18 06:34 Hct 31.1 % (37.0-53.0) L 05/05/18 06:34 MCV 99.0 fl (80.0-100.0) 05/05/18 06:34 MCH 34.3 pg (28.0-34.0) H 05/05/18 06:34 MCHC 34.6 g/dL (30.0-36.0) 05/05/18 06:34 RDW 14.1 % (11.3-14.3) 05/05/18 06:34 Plt Count 156 K/mm3 (130-400) 05/05/18 06:34 Neut % (Auto) 65.0 % (39.0-79.0) 05/05/18 06:34 Lymph % (Auto) 19.2 % (16.0-50.0) 05/05/18 06:34 [place] % (Auto) 12.5 % (0.0-11.0) H 05/05/18 06:34 Eos % (Auto) 3.2 % (0.0-6.8) 05/05/18 06:34 Baso % (Auto) 0.1 (0.0-1.5) 05/05/18 06:34 Neut # (Auto) 2.9 # k/uL (1.4-7.7) 05/05/18 06:34 Lymph # (Auto) 0.9 # k/uL (0.6-4.0) 05/05/18 06:34 [place] # (Auto) 0.6 # k/uL (0.0-0.9) 05/05/18 06:34 Eos # (Auto) 0.1 # k/uL (0.0-0.6) 05/05/18 06:34 Baso # (Auto) 0.0 # k/uL (0.0-0.5) 05/05/18 06:34 PT 35.0 Seconds (9.4-11.6) H 05/05/18 06:35 INR 3.29 (0.9-1.2) H 05/05/18 06:35 Sodium 137 mmol/L (136-145) 05/05/18 06:34 Potassium 3.9 mmol/L (3.5-5.1) 05/05/18 06:34 Chloride 106 mmol/L (98-107) 05/05/18 06:34 Carbon Dioxide 30 mmol/L (22-30) 05/05/18 06:34 BUN 12 mg/dL (9-20) 05/05/18 06:34 Creatinine 0.70 mg/dL (0.66-1.25) 05/05/18 06:34 Estimated Creat Clear 113 05/05/18 06:34 Est GFR ( Amer) > 60 (60-) 05/05/18 06:34 Est GFR (Non-Af Amer) > 60 (60-) 05/05/18 06:34 Glucose 93 mg/dL (74-106) 05/05/18 06:34 Calcium 8.7 mg/dL (8.4-10.2) 05/05/18 06:34 Total Bilirubin 0.9 mg/dL (0.2-1.3) 05/05/18 06:34 AST 37 U/L (15-46) 05/05/18 06:34 ALT 42 U/L (13-69) 05/05/18 06:34 Alkaline Phosphatase 70 U/L (38-126) 05/05/18 06:34 Creatine Kinase 169 U/L (55-170) 05/04/18 09:34 Total Protein 4.9 g/dL (6.3-8.2) L 05/05/18 06:34 Albumin 2.7 g/dL (3.5-5.0) L 05/05/18 06:34 Urine Color Fadia (YELLOW) 05/04/18 13:35 Urine Appearance Clear (CLEAR) 05/04/18 13:35 Urine pH 5.5 (5.0 - 8.0) 05/04/18 13:35 Ur Specific [place] 1.020 (1.010-1.030) 05/04/18 13:35 Urine Protein Negative mg/dL (NEGATIVE) 05/04/18 13:35 Urine Ketones 1+ mg/dL (NEGATIVE) H 05/04/18 13:35 Urine Occult Blood Negative (NEGATIVE) 05/04/18 13:35 Urine Nitrite Negative (NEGATIVE) 05/04/18 13:35 Urine Bilirubin Negative (NEGATIVE) 05/04/18 13:35 Urine Urobilinogen 0.2 Eu (0.2-1.0) 05/04/18 13:35 Ur Leukocyte Esterase Negative (NEGATIVE) 05/04/18 13:35 Urine Glucose Negative mg/dL (NEGATIVE) 05/04/18 13:35 Assessment/Plan - Assessment/Plan (1) Syncope and collapse Status: Acute Current Visit: Yes Assessment: Patient heart rhythm continue to be in atrial fibrillation with a normal rate. However patient has not been up ambulating. (2) Hypotension Status: Acute Current Visit: Yes Assessment: Blood pressure has been in the 120-140 systolic range. (3) Leg pain Status: Acute Current Visit: Yes Assessment: On the x-ray or CT scan. Believe that the patient may have torn or strained a muscle. At the time patient is not able to ambulate secondary to pain. (4) Hematochezia Status: Acute Current Visit: Yes Assessment: M trying to get stool specimen to check for occult blood. (5) Urinary frequency Status: Acute Current Visit: Yes Assessment: Patient is scheduled for a post void residual ultrasound today. (6) Prostate cancer Status: Acute Current Visit: Yes (7) Atrial fibrillation Status: Acute Current Visit: Yes Assessment: Stable. Patient INR is still elevated today will continue to hold his Coumadin. (8) COPD (chronic obstructive pulmonary disease) Status: Chronic Current Visit: Yes Assessment: stable
--- NOTE | 2018-05-05 16:58 | Diagnostic Imaging Report ---
PHAN WAGGONER [facility] [address] [address] Report Submission Date: May 05, 2018 2:01:49 PM CHILD DEVELOPMENT PROFESSOR Patient Study Name: AURELIO ZAMORA Date: May 05, 2018 8:35:28 AM CHILD DEVELOPMENT PROFESSOR Modality Type: US Gender: M Description: US BLADDER : 34 Institution: [facility] Physician: PHAN WAGGONER Examination: Ultrasound bladder. History: UNABLE TO FULLY EMPTY BLADDER X WEEKS (Hx) Comparison exams: None available. Findings: Sonographic evaluation of the bladder. Bladder wall measures 5.8 mm. Mild mucosal nodularity. No evidence for central stone. No post void imaging obtained. Impression: Bladder wall thickening. No obvious stone or polypoid mass. Electronically signed on May 05, 2018 2:01:49 PM CHILD DEVELOPMENT PROFESSOR by: Anthony MADRID
[2018-05-05] MEDS: TERAZOSIN HCL 1 MG CAPSULE PO SCH (21:24)
[2018-05-06] MEDS: HYDROmorphone HCL/PF 1 MG/ML VIAL IVP PRN (08:35)
[2018-05-06] MEDS: METOPROLOL TARTRATE 50 MG TABLET PO SCH ×2 (09:13→21:04)
[2018-05-06] MEDS: FUROSEMIDE 40 MG TABLET PO SCH ×2 (09:14→14:49)
[2018-05-06] MEDS: DIGOXIN 125 MCG TABLET PO SCH (09:15)
[2018-05-06 13:32] LABS: BASOPHILS % 0.2 (0.0-1.5); MEAN CORPUSCULAR HEMOGLOBIN 34.1 pg (28.0-34.0); MONOCYTES % 10.5 % (0.0-11.0); NEUTROPHILS # 3.7 # k/uL (1.4-7.7)
[2018-05-06] MEDS ORDERED: HYDROmorphone HCL 2 MG TABLET PO PRN (17:42)
[2018-05-06] MEDS: TERAZOSIN HCL 1 MG CAPSULE PO SCH (21:04)
[2018-05-07] MEDS ORDERED: ACETAMINOPHEN 325 MG TABLET PO PRN (04:51)
--- NOTE | 2018-05-07 07:47 | Inpatient Progress Note ---
Subjective - Required Recertification Statement I anticipate X number of days because-include discharge plan: 1 day - Review of Systems Events since last encounter: Patient is starting to move his leg some better with a lot of pain. Was able to get up on commode today. Pain seems to be doing fairly well as long as he does not move his leg. Has not noticed any blood in his stools. Has not had any syncopal or near syncopal episodes. He still feels that he has something that may be blocking his BMs. HEENT: Denies: Head Aches, Visual Changes Pulmonary: Denies: Dyspnea, Cough Cardiovascular: Denies: Chest Pain, Palpitations Gastrointestinal: Constipation, Hematochezia. Denies: Nausea, Vomiting, Abdominal Pain, Diarrhea, Melena Genitourinary: Frequency. Denies: Hematuria, Retention Musculoskeletal: Leg Pain Neurological: Denies: Weakness, Numbness Objective - Exam Vitals and I&O: Vital Signs Temp 99.0 F 05/07/18 06:00 Pulse 69 05/07/18 06:00 Resp 16 05/07/18 06:00 BP 103/52 05/07/18 06:00 Pulse Ox 96 05/07/18 06:00 Intake & Output 05/06/18 05/06/18 05/07/18 11:59 23:59 11:59 Intake Total 440 480 150 Output Total 500 300 325 Balance -60 180 -175 Intake: Oral 440 480 150 Output: Urine 500 300 325 Other: Voiding Method Urinal Urinal Urinal # Voids 2 4 2 # Bowel Movements 2 General: Alert, Oriented to Person, Oriented to Place, Oriented to Time, Cooperative, Moderate distress (with movement of his leg) Neck: Supple, No JVD Lungs: Clear to auscultation, Normal air movement, Speaks full Sentences. No: Respiratory Distress, Wheezes, Rales, Rhonchi Cardiovascular: Regular rate, Normal S1, Normal S2, No murmurs Abdomen: Normal bowel sounds, Soft, No tenderness, No masses Skin: Normal, [place], Warm, Dry Psych/Mental Status: Mental status NL, Mood NL, Appropriate Affect, Intact Judgment - Results Results: Laboratory Results WBC 5.20 K/ul (4.00-12.00) 05/06/18 13:10 RBC 3.37 M/ul (3.90-5.20) L 05/06/18 13:10 Hgb 11.5 g/dL (12.0-18.0) L 05/06/18 13:10 Hct 33.4 % (37.0-53.0) L 05/06/18 13:10 MCV 99.0 fl (80.0-100.0) 05/06/18 13:10 MCH 34.1 pg (28.0-34.0) H 05/06/18 13:10 MCHC 34.3 g/dL (30.0-36.0) 05/06/18 13:10 RDW 14.4 % (11.3-14.3) H 05/06/18 13:10 Plt Count 163 K/mm3 (130-400) 05/06/18 13:10 Neut % (Auto) 70.8 % (39.0-79.0) 05/06/18 13:10 Lymph % (Auto) 15.5 % (16.0-50.0) L 05/06/18 13:10 [place] % (Auto) 10.5 % (0.0-11.0) 05/06/18 13:10 Eos % (Auto) 3.0 % (0.0-6.8) 05/06/18 13:10 Baso % (Auto) 0.2 (0.0-1.5) 05/06/18 13:10 Neut # (Auto) 3.7 # k/uL (1.4-7.7) 05/06/18 13:10 Lymph # (Auto) 0.8 # k/uL (0.6-4.0) 05/06/18 13:10 [place] # (Auto) 0.5 # k/uL (0.0-0.9) 05/06/18 13:10 Eos # (Auto) 0.2 # k/uL (0.0-0.6) 05/06/18 13:10 Baso # (Auto) 0.0 # k/uL (0.0-0.5) 05/06/18 13:10 PT 19.6 Seconds (9.4-11.6) H 05/06/18 13:10 INR 1.86 (0.9-1.2) H 05/06/18 13:10 Sodium 137 mmol/L (136-145) 05/05/18 06:34 Potassium 3.9 mmol/L (3.5-5.1) 05/05/18 06:34 Chloride 106 mmol/L (98-107) 05/05/18 06:34 Carbon Dioxide 30 mmol/L (22-30) 05/05/18 06:34 BUN 12 mg/dL (9-20) 05/05/18 06:34 Creatinine 0.70 mg/dL (0.66-1.25) 05/05/18 06:34 Estimated Creat Clear 113 05/05/18 06:34 Est GFR ( Amer) > 60 (60-) 05/05/18 06:34 Est GFR (Non-Af Amer) > 60 (60-) 05/05/18 06:34 Glucose 93 mg/dL (74-106) 05/05/18 06:34 Calcium 8.7 mg/dL (8.4-10.2) 05/05/18 06:34 Total Bilirubin 0.9 mg/dL (0.2-1.3) 05/05/18 06:34 AST 37 U/L (15-46) 05/05/18 06:34 ALT 42 U/L (13-69) 05/05/18 06:34 Alkaline Phosphatase 70 U/L (38-126) 05/05/18 06:34 Creatine Kinase 169 U/L (55-170) 05/04/18 09:34 CK-MB (CK-2) 3.3 ng/mL (0.0-5.6) 05/04/18 09:34 Troponin I < 0.03 ng/mL (0.03-0.06) L 05/04/18 09:34 Total Protein 4.9 g/dL (6.3-8.2) L 05/05/18 06:34 Albumin 2.7 g/dL (3.5-5.0) L 05/05/18 06:34 Prostate Specific Ag 0.01 ng/mL (<4.00) 05/04/18 Unknown Urine Color Fadia (YELLOW) 05/04/18 13:35 Urine Appearance Clear (CLEAR) 05/04/18 13:35 Urine pH 5.5 (5.0 - 8.0) 05/04/18 13:35 Ur Specific [place] 1.020 (1.010-1.030) 05/04/18 13:35 Urine Protein Negative mg/dL (NEGATIVE) 05/04/18 13:35 Urine Ketones 1+ mg/dL (NEGATIVE) H 05/04/18 13:35 Urine Occult Blood Negative (NEGATIVE) 05/04/18 13:35 Urine Nitrite Negative (NEGATIVE) 05/04/18 13:35 Urine Bilirubin Negative (NEGATIVE) 05/04/18 13:35 Urine Urobilinogen 0.2 Eu (0.2-1.0) 05/04/18 13:35 Ur Leukocyte Esterase Negative (NEGATIVE) 05/04/18 13:35 Urine Glucose Negative mg/dL (NEGATIVE) 05/04/18 13:35 Stool Occult Blood Cancelled 05/06/18 22:00 Stool Guaiac Test Positive (NEGATIVE) H 05/05/18 Unknown Assessment/Plan - Assessment/Plan (1) Syncope and collapse Status: Acute Current Visit: Yes Assessment: Monitor show chronic atrial fib. No bradycardia or tachycardia noted. BP has been stable. No hypotensive episodes that he has described that he has had at home. But he has not been up ambulating. (2) Hypotension Status: Acute Current Visit: Yes Assessment: stable (3) Leg pain Status: Acute Current Visit: Yes Assessment: Patient continues to have a lot of pain with movement of his leg. It seems to be in the proximal/lateral thigh area. No ecchymosis or bruising noted at this time. No hematoma can be palpated. No bony abnl noted. Patient is starting to move some better today. He is not able to return home at this time. (4) Hematochezia Status: Acute Current Visit: Yes Assessment: Stool for occult blood positive 3/3. I will do a rectal exam and consider CT scan of the abd. I do not think that he would be a good candidate for colonoscopy at this time. Hgb/Hct have remained stable. Will continue with anticoagulation at this time. (5) Urinary frequency Status: Acute Current Visit: Yes Assessment: US showed some bladder wall thickening, no other abnl noted (6) Prostate cancer Status: Acute Current Visit: Yes Assessment: PSA 0.01 (7) Atrial fibrillation Status: Acute Current Visit: Yes Assessment: stable with no RVR noted, continues on anticoagulation therapy (8) COPD (chronic obstructive pulmonary disease) Status: Chronic Current Visit: Yes Assessment: stable
[2018-05-07] MEDS ORDERED: FUROSEMIDE 40 MG TABLET PO SCH ×2 (09:00→14:00)
[2018-05-07] MEDS: DIGOXIN 125 MCG TABLET PO SCH (10:28)
[2018-05-07] MEDS: METOPROLOL TARTRATE 50 MG TABLET PO SCH (10:29)
[2018-05-07] MEDS: FUROSEMIDE 40 MG TABLET PO SCH (10:29)
[2018-05-07 13:55] VITALS: BP 122/88
--- NOTE | 2018-05-08 04:20 | Diagnostic Imaging Report ---
[facility]/MED SURG [facility] [address] [facility] [address] [place], [place]. [address] Report Submission Date: May 07, 2018 2:47:15 PM WIND TURBINE TECHNICIAN Patient Study Name: AURELIO ZAMORA Date: May 07, 2018 11:58:30 AM WIND TURBINE TECHNICIAN Modality Type: CT\SR Gender: M Description: CT ABD PELVIS W/ CON : 32 Institution: [facility] Physician: [facility]/MED SURG Examination: CT Abdomen/pelvis History: LOWER ABD PAIN. PT STATES CONSTIPATION (Hx) Comparison exams: None available Technique: CT Abdomen/pelvis without IV protocol. Findings: Liver demonstrates mild diffuse low attenuation. No central lesion. Spleen, adrenals, pancreas and gallbladder are without gross irregularity given exam technique. No gallstone. Large left renal cortical cyst measuring 13.2 cm diameter. No central septation. No suspicious renal calcifications. Ureters are nondilated in their course through the abdomen and pelvis. No central calcifications. Bladder margin obscured due to streak artifact from hip replacement hardware. Abdominal aorta without aneurysm. Moderate peripheral atherosclerotic disease. Cardiac silhouette is not enlarged. No pericardial effusion. Vascular calcifications. Bowel unopacified limiting evaluation. No abnormal dilation. Stool within the large bowel limiting sensitivity. No mesenteric inflammatory changes or free fluid. Appendix not visualized. Prostate region brachytherapy seeds. Osseous structures demonstrate degenerative changes. Bilateral hip replacement. Lung bases demonstrate emphysematous changes. Posterior pleural thickening/effusion. Impression: No acute upper abdominal organ inflammatory process. No abnormal bowel dilation or inflammation. No gallstone. Fatty liver. Large left renal cyst measuring 13.2 cm. No suspicious renal calcifications or abnormal ureteric dilation. Lung base emphysematous changes and posterior pleural thickening/effusions. Electronically signed on May 07, 2018 2:47:15 PM WIND TURBINE TECHNICIAN by: Anthony MADRID
--- NOTE | 2018-05-26 15:54 | Discharge Summary ---
Discharge Summary - Discharge Sumary History of Present Illness: 87yo whit e male who states last night he fell. Has been having some episodes of low BP. At 2200 had a reading of 70/30. NO sure of what precipitates the episodes. When he got up felt light headed and fell. Was out for just a second. At that time when he straighten left leg out he had some immediate pain. Spent the night on the floor. This AM called someone to help him. Patient was seen in the ED and admitted for further care. About one month age he started to have some problems with urination, initiating and not able to completely empty his bladder. Has been treated for prostate cancer, treated with radiation implants. Is having similar symptoms. Patient states that for the last 10 years he has been having some blood in stool. Had a colonoscopy at that time and was normal. Is starting to have some stool incontinence. Patient believes that he might be having some increase blood. Condition at Discharge: Stable Home Medications: Ambulatory Orders Medication Instructions Recorded Lecithin 1,200 mg PO BID 12/03/13 Glucosamine/MSM/Chondroit Sulf 1 tab PO BID 03/29/14 [Rkmfhzxyqsb-Gwmvghrpdkc-NTS Tb] Digoxin [Lanoxin] 125 mcg PO D 05/04/18 Diltiazem HCl [Tiazac] 180 mg PO BID 05/04/18 Acetaminophen [Tylenol] 650 mg PO Q6 PRN tablet 05/07/18 Apixaban [Eliquis] 5 mg PO BID #60 tablet 05/14/18 Metoprolol Tartrate [Lopressor] 25 mg PO BID tablet 05/14/18 Consultations this Visit: None, Other (Pt and OT) Procedures this Visit: None Allergies/Adverse Reactions: Allergies Allergy/AdvReac Type Severity Reaction Status Date / Time amiodarone Allergy Verified 05/04/18 09:39 Discharge Summary: Patient neurological status remains stable during his admission. Patient did have some episodes of hypertension. Patient blood pressure medications were injected. I did contact Dr. Hernandez's office with information concerning the adjustments of his medications. Patient did not have any further a couple episodes but did have some lightheadedness associated with his hypotension. Patient did continue to have a lot of pain associated with his left leg. Patient did have two CT scans done on the hip and leg area. Prosthesis appeared to be seated well. No evidence of any fracture dislocation noted. Physical and occupational therapy with consulted. Patient did have some hematochezia. Rectal exam was done and did show some bright red blood. This was felt to be related to hemorrhoids. Patient hemoglobin and hematocrit were monitored and remain stable. At 3.6. Patient Coumadin was held and readjusted. At the time of dismissal it was within therapeutic range. Patient was on anticoagulation therapy for chronic atrial fibrillation. Patient atrial fibrillation remain stable without any tachycardia bradycardia noted. Patient did complain of some urinary symptoms. Patient did have a post void residual ultrasound done which did show not show a lot of residual urine. At the time to discharge patient was stable that he would not ambulating well. It was felt that it was unsafe for him to go home. Patient was admitted to SNF for further rehab services. - Final Diagnosis (1) Syncope and collapse Problems: No further symptoms noted. This was felt to be related to the patient hypertension. (2) Hypotension Problems: Medications were adjusted. (3) Leg pain Problems: Nitro to be secondary to contusion/strain. (4) Hematochezia Problems: Related to hemorrhoids hemoglobin hematocrit remain stable.
== END 2018-05-07 14:30 | DRG 556 ==
LOC: ED 09:22 → OBSVTOIN 13:44 → SOUTH 13:44
PROVIDERS: ADMIT Family Medicine; ATTEND Family Medicine
DX: M25.551 Pain in right hip (principal); K92.1 Melena; I95.9 Hypotension, unspecified; R41.0 Disorientation, unspecified; W19.XXXA Unspecified fall, initial encounter; Y92.019 Unspecified place in single-family (private) house as the place of occurrence of the external cause
CPT/HCPCS: 70450; 73552; 73700; 74177; 76857; 80053; 81002; 82270; 82272; 82550; 82553; 84153; 84484; 85025; 85610; 96374; 99221; 99231; 99238; 99284; J1170; J3010; A9270; J7030; Q9967

== ENCOUNTER 2018-05-07 14:32 | Inpatient (IN) | payer MEDICARE, OTHER ==
[2018-05-07 14:58] VITALS: BMI 15.4
[2018-05-07] MEDS ORDERED: HYDROmorphone HCL 2 MG TABLET PO PRN (15:05)
[2018-05-07] MEDS ORDERED: ACETAMINOPHEN 325 MG TABLET PO PRN (15:05)
[2018-05-07] MEDS ORDERED: WARFARIN SODIUM 1 MG TABLET PO ONE (17:53)
[2018-05-07] MEDS: WARFARIN SODIUM 2.5 MG TABLET PO SCH (17:55)
[2018-05-07] MEDS ORDERED: WARFARIN SODIUM 7.5 MG PO SCH (18:00)
[2018-05-07] MEDS ORDERED: DILTIAZEM HCL 180 MG PO SCH (21:00)
[2018-05-07] MEDS: FUROSEMIDE 40 MG TABLET PO SCH (21:25)
[2018-05-07] MEDS: METOPROLOL TARTRATE 50 MG TABLET PO SCH (21:25)
[2018-05-07] MEDS: TERAZOSIN HCL 1 MG PO SCH (21:25)
[2018-05-08 07:47] LABS: BASOPHILS % 0.2 (0.0-1.5); EOSINOPHILS % 3.2 % (0.0-6.8); MEAN CORPUSCULAR HEMOGLOBIN 32.6 pg (28.0-34.0); MONOCYTES % 11.5 % (0.0-11.0); NEUTROPHILS # 2.5 # k/uL (1.4-7.7)
[2018-05-08 08:11] LABS: eGFR (Non-African) > 60
[2018-05-08] MEDS: METOPROLOL TARTRATE 50 MG TABLET PO SCH ×2 (09:17→20:00)
[2018-05-08] MEDS: FUROSEMIDE 40 MG TABLET PO SCH ×2 (09:17→20:00)
[2018-05-08] MEDS: DILTIAZEM HCL 180 MG CAP.ER.24H PO SCH (09:17)
[2018-05-08] MEDS: DIGOXIN 125 MCG TABLET PO SCH (09:18)
[2018-05-08] MEDS: WARFARIN SODIUM 5 MG TABLET PO SCH (17:33)
[2018-05-08] MEDS: TERAZOSIN HCL 1 MG PO SCH (20:00)
[2018-05-09] MEDS: DIGOXIN 125 MCG TABLET PO SCH (09:42)
[2018-05-09] MEDS: DILTIAZEM HCL 180 MG CAP.ER.24H PO SCH (09:43)
[2018-05-09] MEDS: FUROSEMIDE 40 MG TABLET PO SCH ×2 (09:43→21:10)
[2018-05-09] MEDS: METOPROLOL TARTRATE 50 MG TABLET PO SCH ×2 (09:44→21:10)
[2018-05-09] MEDS: WARFARIN SODIUM 2.5 MG TABLET PO SCH ×2 (19:04→21:12)
[2018-05-09] MEDS: TERAZOSIN HCL 1 MG PO SCH (21:10)
[2018-05-10] MEDS: DIGOXIN 125 MCG TABLET PO SCH (09:08)
[2018-05-10] MEDS: DILTIAZEM HCL 180 MG CAP.ER.24H PO SCH (09:09)
[2018-05-10] MEDS: FUROSEMIDE 40 MG TABLET PO SCH ×2 (09:09→20:03)
[2018-05-10] MEDS: METOPROLOL TARTRATE 50 MG TABLET PO SCH ×2 (09:09→20:03)
[2018-05-10] MEDS: WARFARIN SODIUM 5 MG TABLET PO SCH (17:57)
[2018-05-10] MEDS: TERAZOSIN HCL 1 MG PO SCH (20:03)
[2018-05-11] MEDS: FUROSEMIDE 40 MG TABLET PO SCH ×2 (11:07→20:52)
[2018-05-11] MEDS: DIGOXIN 125 MCG TABLET PO SCH (11:07)
[2018-05-11] MEDS: DILTIAZEM HCL 180 MG CAP.ER.24H PO SCH (11:07)
[2018-05-11] MEDS: METOPROLOL TARTRATE 50 MG TABLET PO SCH ×2 (11:08→20:51)
[2018-05-11] MEDS: WARFARIN SODIUM 5 MG TABLET PO SCH (18:08)
[2018-05-11] MEDS: TERAZOSIN HCL 1 MG PO SCH (20:53)
[2018-05-12] MEDS ORDERED: WARFARIN SODIUM 5 MG TABLET PO ONE (08:27)
[2018-05-12] MEDS: DILTIAZEM HCL 180 MG CAP.ER.24H PO SCH (08:48)
[2018-05-12] MEDS: FUROSEMIDE 40 MG TABLET PO SCH ×2 (08:48→20:44)
[2018-05-12] MEDS: METOPROLOL TARTRATE 50 MG TABLET PO SCH ×2 (08:48→20:46)
[2018-05-12] MEDS ORDERED: WARFARIN SODIUM 2.5 MG TABLET PO SCH (09:00)
[2018-05-12] MEDS: DIGOXIN 125 MCG TABLET PO SCH (09:42)
[2018-05-12] MEDS: TERAZOSIN HCL 1 MG PO SCH (20:46)
[2018-05-13] MEDS ORDERED: WARFARIN SODIUM 5 MG TABLET PO ONE (07:42)
[2018-05-13] MEDS ORDERED: WARFARIN SODIUM 2.5 MG TABLET PO SCH (09:00)
[2018-05-13] MEDS ORDERED: DILTIAZEM HCL 120 MG CAP.ER.24H PO SCH (09:00)
[2018-05-13] MEDS: DIGOXIN 125 MCG TABLET PO SCH (09:01)
[2018-05-13] MEDS: FUROSEMIDE 40 MG TABLET PO SCH ×2 (09:02→20:31)
[2018-05-13] MEDS: METOPROLOL TARTRATE 50 MG TABLET PO SCH ×2 (09:07→20:31)
[2018-05-13 10:09] LABS: MEAN CORPUSCULAR HEMOGLOBIN 32.9 pg (28.0-34.0)
[2018-05-13 10:10] LABS: BASOPHILS % 0.2 (0.0-1.5); EOSINOPHILS % 3.8 % (0.0-6.8); MONOCYTES % 10.3 % (0.0-11.0); NEUTROPHILS # 2.5 # k/uL (1.4-7.7)
[2018-05-13 10:41] LABS: eGFR (Non-African) > 60
--- NOTE | 2018-05-13 13:06 | Inpatient Progress Note ---
Subjective - Required Recertification Statement I anticipate X number of days because-include discharge plan: 1 day - Review of Systems Subjective: Patient continues to have some difficulties with ambulation and transfer and related to pain in his left lower extremity. Patient is wanted to be discharged home tomorrow. I have talked with him and advised him that I am not sure that that is a good plan. Patient stated if he does not do well he planned on going to [facility] for further rehab services. Patient atrial fibrillation appeared to be stable patient denies any tachycardia bradycardia. Patient continues to have some mild lightheadedness associated with his hypertension but it does seem to be improved. Patient is not had any further blood in his bowel movements. Patient is urinating and ending in the bladder out okay. Patient COPD appeared to be stable. Pulmonary: Denies: Dyspnea, Cough Cardiovascular: Denies: Chest Pain Gastrointestinal: Denies: Nausea, Vomiting, Abdominal Pain, Constipation Genitourinary: Denies: Dysuria, Frequency, Incontinence Musculoskeletal: Leg Pain Objective - Exam Vitals and I&O: Vital Signs Temp 97.6 F 05/13/18 07:50 Pulse 115 H 05/13/18 12:59 Resp 18 05/13/18 09:00 BP 87/53 05/13/18 12:59 Pulse Ox 96 05/13/18 07:50 Intake & Output 05/12/18 05/13/18 05/13/18 23:59 11:59 23:59 Intake Total 640 240 240 Output Total 400 750 Balance 240 -510 240 Intake: Oral 640 240 240 Output: Urine 400 750 Other: Voiding Method Urinal Urinal # Voids 2 3 # Bowel Movements 2 General: Alert, Oriented to Person, Oriented to Place, Oriented to Time, Cooperative Neck: Supple, No JVD Lungs: Clear to auscultation, Normal air movement, Speaks full Sentences. No: Wheezes, Rales, Rhonchi Cardiovascular: Irregularly Irregular, Atrial Fib Abdomen: Normal bowel sounds, Soft, No tenderness Extremities: No clubbing, No cyanosis, Other (Patient is developing some ecchymosis to the posterior aspect of his left upper body. Patient has minimal tenderness to palpation. Patient does have pain with flexing of the hip and external rotation.) Skin: Normal, [place], Warm, Dry Neurological: Normal speech. No: Normal gait - Results Results: Laboratory Results WBC 33.80 K/ul (4.00-12.00) H 05/13/18 09:50 RBC 3.24 M/ul (3.90-5.20) L 05/13/18 09:50 Hgb 10.7 g/dL (12.0-18.0) L 05/13/18 09:50 Hct 30.8 % (37.0-53.0) L 05/13/18 09:50 MCV 95.0 fl (80.0-100.0) 05/13/18 09:50 MCH 32.9 pg (28.0-34.0) 05/13/18 09:50 MCHC 34.6 g/dL (30.0-36.0) 05/13/18 09:50 RDW 14.9 % (11.3-14.3) H 05/13/18 09:50 Plt Count 201 K/mm3 (130-400) 05/13/18 09:50 Neut % (Auto) 66.5 % (39.0-79.0) 05/13/18 09:50 Lymph % (Auto) 19.2 % (16.0-50.0) 05/13/18 09:50 [place] % (Auto) 10.3 % (0.0-11.0) 05/13/18 09:50 Eos % (Auto) 3.8 % (0.0-6.8) 05/13/18 09:50 Baso % (Auto) 0.2 (0.0-1.5) 05/13/18 09:50 Neut # (Auto) 2.5 # k/uL (1.4-7.7) 05/13/18 09:50 Lymph # (Auto) 0.7 # k/uL (0.6-4.0) 05/13/18 09:50 [place] # (Auto) 0.4 # k/uL (0.0-0.9) 05/13/18 09:50 Eos # (Auto) 0.1 # k/uL (0.0-0.6) 05/13/18 09:50 Baso # (Auto) 0.0 # k/uL (0.0-0.5) 05/13/18 09:50 PT 17.0 Seconds (9.4-11.6) H 05/11/18 12:00 INR 1.61 (0.9-1.2) H 05/11/18 12:00 Sodium 141 mmol/L (136-145) 05/13/18 09:50 Potassium 3.8 mmol/L (3.5-5.1) 05/13/18 09:50 Chloride 102 mmol/L (98-107) 05/13/18 09:50 Carbon Dioxide 34 mmol/L (22-30) H 05/13/18 09:50 BUN 27 mg/dL (9-20) H 05/13/18 09:50 Creatinine 0.90 mg/dL (0.66-1.25) 05/13/18 09:50 Estimated Creat Clear 85 05/13/18 09:50 Est GFR ( Amer) > 60 (60-) 05/13/18 09:50 Est GFR (Non-Af Amer) > 60 (60-) 05/13/18 09:50 Glucose 104 mg/dL (74-106) 05/13/18 09:50 Calcium 9.0 mg/dL (8.4-10.2) 05/13/18 09:50 Total Bilirubin 1.1 mg/dL (0.2-1.3) 05/13/18 09:50 AST 53 U/L (15-46) H 05/13/18 09:50 ALT 54 U/L (13-69) 05/13/18 09:50 Alkaline Phosphatase 87 U/L (38-126) 05/13/18 09:50 Total Protein 5.0 g/dL (6.3-8.2) L 05/13/18 09:50 Albumin 2.8 g/dL (3.5-5.0) L 05/13/18 09:50 Assessment/Plan - Assessment/Plan (1) gait disturbance Status: Acute (2) Atrial fibrillation Status: Chronic
[2018-05-13 14:24] LABS: APPEARANCE,URINE CLOUDY (CLEAR); COLOR,URINE YELLOW (YELLOW); OCCULT BLOOD,URINE TRACE-LYSED (NEGATIVE); PH URINE 5.5 (5.0 - 8.0)
[2018-05-13] MEDS: APIXABAN 2.5 MG TABLET PO SCH (20:31)
[2018-05-13] MEDS: TERAZOSIN HCL 1 MG PO SCH (20:31)
--- NOTE | 2018-05-14 05:23 | Diagnostic Imaging Report ---
[facility]MED SURG [facility] [address] [facility] [address] [place] [address]. [id number] Report Submission Date: May 13, 2018 11:03:33 PM OFFICE WORKER Patient Study Name: AURELIO ZAMORA Date: May 13, 2018 2:04:25 PM OFFICE WORKER Modality Type: CT\SR Gender: M Description: CT LEG W/O CONTRAST : 32 Institution: [facility] Physician: [facility]/MED SURG CT of the left thigh without contrast Clinical history: Midthigh pain since fall 1 week ago. Technique: CT of the thigh is performed in contiguous axial slices with sagittal and coronal reconstructions. Findings: There is a left total hip replacement with resulting metal artifact. Bony structures are intact. There is no evident fracture. There is soft tissue swelling in the lateral thigh in the midportion consistent with contusion. There is no fluid collection to suggest hematoma. Vascular calcification is demonstrated. There is no joint effusion. Impression: 1. Soft tissue contusion in the lateral thigh. 2. Degenerative changes in the knee joint. 3. Left total hip replacement. 4. Vascular calcification. Electronically signed on May 13, 2018 11:03:33 PM OFFICE WORKER by: Arias MADRID
--- NOTE | 2018-05-14 05:24 | Diagnostic Imaging Report ---
[facility]MED SURG [facility] [address] [facility].[address] [address] Report Submission Date: May 13, 2018 11:05:51 PM SCHOOL LUNCH MANAGER Patient Study Name: AURELIO ZAMORA Date: May 13, 2018 2:17:06 PM SCHOOL LUNCH MANAGER Modality Type: DX Gender: M Description: CHEST : 34 Institution: [facility] Physician: [facility]/MED SURG PA and lateral chest Clinical history: Leukocytosis. Technique: Examination of the chest in AP and lateral views with no prior films for comparison demonstrates bipolar pacemaker overlying left hemithorax. Cardiovascular and mediastinal silhouettes are within normal limits for the patient's age. The aorta is atherosclerotic. Degenerative changes are seen in the thoracic vertebrae. Impression: 1. Aortic atherosclerosis. 2. No active disease. Electronically signed on May 13, 2018 11:05:51 PM SCHOOL LUNCH MANAGER by: Arias MADRID
[2018-05-14 07:35] LABS: BASOPHILS % 0.2 (0.0-1.5); EOSINOPHILS % 3.6 % (0.0-6.8); MEAN CORPUSCULAR HEMOGLOBIN 32.7 pg (28.0-34.0); MONOCYTES % 9.5 % (0.0-11.0); NEUTROPHILS # 2.5 # k/uL (1.4-7.7)
--- NOTE | 2018-05-14 08:29 | Discharge Summary ---
Discharge Summary - Discharge Sumary History of Present Illness: 87-year-old white male who has been having some episodes of hypotension. These mainly seem to be orthostatic in nature. Patient did have an episode and had a syncopal episode along with it. Patient is not able to get up off the floor by himself. Patient was subsequently brought to the emergency room. In the emergency room patient was noted have a lot of pain to his left hip and thigh area. X-rays did not show any fracture dislocation. Patient was admitted to acute care for further evaluation of the along with his hypotension syncopal episode. Patient had to have his antihypertensive medications adjusted during his acute stay. Patient continues to have a lot of pain in his leg it was felt that he would benefit from further rehab services and was subsequently transferred toS. Home Medications: Ambulatory Orders Medication Instructions Recorded Lecithin 1,200 mg PO BID 12/03/13 Glucosamine/MSM/Chondroit Sulf 1 tab PO BID 03/29/14 [Pimmwqvotfm-Jxodogfgxhz-CFJ Tb] Digoxin [Lanoxin] 125 mcg PO D 05/04/18 Diltiazem HCl [Tiazac] 180 mg PO BID 05/04/18 Acetaminophen [Tylenol] 650 mg PO Q6 PRN tablet 05/07/18 Apixaban [Eliquis] 5 mg PO BID #60 tablet 05/14/18 Metoprolol Tartrate [Lopressor] 25 mg PO BID tablet 05/14/18 Consultations this Visit: None Procedures this Visit: None Allergies/Adverse Reactions: Allergies Allergy/AdvReac Type Severity Reaction Status Date / Time amiodarone Allergy Verified 05/04/18 09:39 Discharge Summary: Patient continues to have some episodes of hypotension with systolic blood pressure getting into the 70s. Patient antihypertensive medications were adjusted. Patient was wearing support stockings. Patient continues to have a a lot of pain associated with his left hip and thigh area. Patient was started on physical and occupational therapy. Patient did have some difficulties in participating with the therapy because of the pain. At the time to discharge patient was still having some difficulties with transferring and ambulation. It was recommended to the patient that he go to an extended care unit/ICF. Patient refused and wanted to go home. Patient felt that he would have a not help at home to manage effectively. Patient COPD remain stable during his hospitalization. Patient other chronic medical problems remain stable. Hospital Course: [phone] - Final Diagnosis (1) Hip pain, left Problems: improved (2) Hypotension Problems: improved (3) gait disturbance Problems: improved (4) Atrial fibrillation Problems: stable (5) COPD (chronic obstructive pulmonary disease) Problems: stable
--- NOTE | 2018-05-14 08:30 | Inpatient Progress Note ---
Subjective - Required Recertification Statement I anticipate X number of days because-include discharge plan: 7 days - Review of Systems Subjective: Patient continues to have a a lot of pain with movement of his left lower extremity in the hip and thigh area. Patient is having some difficulties in participating with physical and occupational therapy at this time. Patient continues to have some hypotensive episodes. Medications continue to be adjusted. Patient is not had any further syncopal near syncopal episodes. Objective - Exam Vitals and I&O: Vital Signs Temp 97.3 F L 05/14/18 05:00 Pulse 78 05/14/18 05:00 Resp 18 05/14/18 05:00 BP 110/64 05/14/18 05:00 Pulse Ox 97 05/14/18 05:00 Intake & Output 05/13/18 05/13/18 05/14/18 11:59 23:59 11:59 Intake Total 240 720 300 Output Total 750 550 Balance -510 720 -250 Intake: Oral 240 720 300 Output: Urine 750 550 Other: Voiding Method Urinal Urinal # Voids 3 1 # Bowel Movements 1 General: Alert, Oriented to Person, Oriented to Place, Oriented to Time, Cooperative Lungs: Clear to auscultation, Normal air movement, Speaks full Sentences. No: Wheezes, Rales, Rhonchi Cardiovascular: Normal S1, Normal S2, Irregularly Irregular Abdomen: Normal bowel sounds, Soft, No tenderness - Results Results: Laboratory Results WBC 4.10 K/ul (4.00-12.00) 05/14/18 06:15 RBC 3.20 M/ul (3.90-5.20) L 05/14/18 06:15 Hgb 10.4 g/dL (12.0-18.0) L 05/14/18 06:15 Hct 30.3 % (37.0-53.0) L 05/14/18 06:15 MCV 95.0 fl (80.0-100.0) 05/14/18 06:15 MCH 32.7 pg (28.0-34.0) 05/14/18 06:15 MCHC 34.4 g/dL (30.0-36.0) 05/14/18 06:15 RDW 14.5 % (11.3-14.3) H 05/14/18 06:15 Plt Count 207 K/mm3 (130-400) 05/14/18 06:15 Neut % (Auto) 60.5 % (39.0-79.0) 05/14/18 06:15 Lymph % (Auto) 26.2 % (16.0-50.0) 05/14/18 06:15 [place] % (Auto) 9.5 % (0.0-11.0) 05/14/18 06:15 Eos % (Auto) 3.6 % (0.0-6.8) 05/14/18 06:15 Baso % (Auto) 0.2 (0.0-1.5) 05/14/18 06:15 Neut # (Auto) 2.5 # k/uL (1.4-7.7) 05/14/18 06:15 Lymph # (Auto) 1.1 # k/uL (0.6-4.0) 05/14/18 06:15 [place] # (Auto) 0.4 # k/uL (0.0-0.9) 05/14/18 06:15 Eos # (Auto) 0.2 # k/uL (0.0-0.6) 05/14/18 06:15 Baso # (Auto) 0.0 # k/uL (0.0-0.5) 05/14/18 06:15 PT 17.0 Seconds (9.4-11.6) H 05/11/18 12:00 INR 1.61 (0.9-1.2) H 05/11/18 12:00 Sodium 141 mmol/L (136-145) 05/13/18 09:50 Potassium 3.8 mmol/L (3.5-5.1) 05/13/18 09:50 Chloride 102 mmol/L (98-107) 05/13/18 09:50 Carbon Dioxide 34 mmol/L (22-30) H 05/13/18 09:50 BUN 27 mg/dL (9-20) H 05/13/18 09:50 Creatinine 0.90 mg/dL (0.66-1.25) 05/13/18 09:50 Estimated Creat Clear 85 05/13/18 09:50 Est GFR ( Amer) > 60 (60-) 05/13/18 09:50 Est GFR (Non-Af Amer) > 60 (60-) 05/13/18 09:50 Glucose 104 mg/dL (74-106) 05/13/18 09:50 Calcium 9.0 mg/dL (8.4-10.2) 05/13/18 09:50 Total Bilirubin 1.1 mg/dL (0.2-1.3) 05/13/18 09:50 AST 53 U/L (15-46) H 05/13/18 09:50 ALT 54 U/L (13-69) 05/13/18 09:50 Alkaline Phosphatase 87 U/L (38-126) 05/13/18 09:50 Total Protein 5.0 g/dL (6.3-8.2) L 05/13/18 09:50 Albumin 2.8 g/dL (3.5-5.0) L 05/13/18 09:50 Urine Color Yellow (YELLOW) 05/13/18 13:57 Urine Appearance Cloudy (CLEAR) 05/13/18 13:57 Urine pH 5.5 (5.0 - 8.0) 05/13/18 13:57 Ur Specific [place] 1.015 (1.010-1.030) 05/13/18 13:57 Urine Protein Negative mg/dL (NEGATIVE) 05/13/18 13:57 Urine Ketones Negative mg/dL (NEGATIVE) 05/13/18 13:57 Urine Occult Blood Trace-lysed (NEGATIVE) H 05/13/18 13:57 Urine Nitrite Negative (NEGATIVE) 05/13/18 13:57 Urine Bilirubin Negative (NEGATIVE) 05/13/18 13:57 Urine Urobilinogen 1.0 Eu (0.2-1.0) 05/13/18 13:57 Ur Leukocyte Esterase 2+ (NEGATIVE) H 05/13/18 13:57 Urine WBC 25-50 (0-5 HPF) H 05/13/18 13:57 Urine Bacteria Many (NEGATIVE) H 05/13/18 13:57 Urine Glucose Negative mg/dL (NEGATIVE) 05/13/18 13:57 Assessment/Plan - Assessment/Plan (1) Atrial fibrillation Status: Chronic Assessment: Patient has been switch to elaquis at this time. (2) Leg pain Status: Acute Assessment: Seem to be slowly improving with physical and occupational therapy although patient is still having difficulties with ambulation and transferring. (3) gait disturbance Status: Acute
[2018-05-14] MEDS: APIXABAN 2.5 MG TABLET PO SCH (08:54)
[2018-05-14] MEDS: DIGOXIN 125 MCG TABLET PO SCH (08:55)
[2018-05-14] MEDS: FUROSEMIDE 40 MG TABLET PO SCH (08:55)
[2018-05-14] MEDS: METOPROLOL TARTRATE 50 MG TABLET PO SCH (08:56)
[2018-05-14 14:18] VITALS: BP 138/50
[2018-05-15] MEDS ORDERED: WARFARIN SODIUM 5 MG TABLET PO SCH (08:24)
== END 2018-05-14 13:45 | disposition home or self-care (01) | DRG 310 ==
LOC: SOUTH 14:32
PROVIDERS: ADMIT Family Medicine; ATTEND Family Medicine
DX: I48.91 Unspecified atrial fibrillation (principal); I95.89 Other hypotension; M25.552 Pain in left hip; R26.89 Other abnormalities of gait and mobility; J44.9 Chronic obstructive pulmonary disease, unspecified; Z96.642 Presence of left artificial hip joint
CPT/HCPCS: 36415; 71046; 73700; 80048; 80053; 81002; 85025; 85610; 87086; 87186; 99232; 99238; S1016